=== PATIENT | female | born 1980 | race Caucasian/White ===

== ENCOUNTER 2016-09-23 16:13 | Emergency (ER) | payer SELFPAY ==
[~2016-09-23] VITALS: Ht 177.8 cm; Wt 93.1 kg
[~2016-09-23 16:13] MED LIST: DOXY25TA7 PO; IBUP-1428 PO
[2016-09-23 16:21] VITALS: TEMP 36.5; Ht 177.8 cm; Wt 93.1 kg
[2016-09-23] MEDS ORDERED: SODIUM CHLORIDE 0.9% 1000ML 1,000 ML IV STA (16:27)
[2016-09-23] MEDS ORDERED: KETOROLAC TROMETHAMINE 30 MG/ML VIAL IV STA (16:27)
[2016-09-23 16:47] LABS: BASO % 0.2 %; BASO ABS # 0.02 K/uL (0-0.2); COMPLETE YES; EOS % 2.2 %; HEMATOCRIT 42.5 % (37-47); IG% 0.3 %; LYMPH % 18.2 %; MEAN CORPUSCULAR HEMOGLOBIN 27.5 pg (25-34); MEAN CORPUSCULAR HGB CONC 32.7 g/dl (32-36); MEAN PLATELET VOLUME 11.1 fL (7.4-10.4); MONO % 6.6 %; NEUT % 72.5 %; PLATELET COUNT 190 K/uL (130-400); RED BLOOD COUNT 5.06 M/uL (4.2-5.4); WHITE BLOOD COUNT 8.79 K/uL (4.8-10.8)
[2016-09-23] MEDS ORDERED: MELA1TAB5 PO (16:48)
[2016-09-23] MEDS ORDERED: DIPH-437 PO (16:48)
[2016-09-23 16:56] LABS: URINE APPEARANCE CLEAR (CLEAR); URINE BILIRUBIN NEG (NEG); URINE COLOR YELLOW; URINE EPITHELIAL CELL AUTO >30 /lpf (0-5); URINE NITRITE NEG (NEG); URINE SPECIFIC GRAVITY 1.028 (1.000-1.030); UROBILINOGEN NEG (NEG); ZZUR CULT IF INDIC CLEAN CATCH NO
[2016-09-23 17:02] LABS: MANUAL MICROSCOPIC REQUIRED? NO; REVIEW REQ? YES
[2016-09-23 17:04] LABS: ALT/SGPT 26 U/L (12-78); AST/SGOT 19 U/L (15-37); BLOOD UREA NITROGEN 8 mg/dl (7-18); BUN/CREATININE RATIO 8.8 (10-20); CALCIUM 8.9 mg/dl (8.5-10.1); CARBON DIOXIDE 25 mmol/L (21-32); CHLORIDE 108 mmol/L (98-107); CREATININE 0.89 mg/dl (0.60-1.20); GLUCOSE 97 mg/dl (70-99); POTASSIUM 3.4 mmol/L (3.5-5.1); SODIUM 138 mmol/L (136-145)
--- NOTE | 2016-09-23 17:04 | EMERGENCY ROOM VISIT NOTE ---
History Report prepared by Pily: Izaiah Albright Under the Supervision of: Dr. Sawyer Cuevas D.O. First contact with patient: 16:24 Chief Complaint: RESPIRATORY PROBLEMS Stated Complaint: CHEST PAIN,DIZZY History of Present Illness The patient is a 35 year old female who presents to the Emergency Room with complaints of a constant chest tightness for the past 2 weeks. The patient additionally states that she is having shortness of breath, coughing with clear phlegm, chills, vomiting, burning with urination starting a week ago, runny nose , sore throat, ear pain more so on the right, and light headedness at work earlier today. She states that laying down makes the coughing worse. She states that her last menstrual period was two weeks ago, and she does not have a history of asthma. Additionally, she states that she has TMJ, though she does not have any acute jaw pain. The patient denies any history of hypertension, hyperlipidemia, diabetes, blood clots, CAD, cancer, recent trips, hemoptysis, swelling of legs, or recent surgeries. Pt denies headache, change in vision, fevers, diarrhea, and melena. Source of History: patient Onset: 2 weeks ago Position: chest Quality: other (tightness) Timing: constant Modifying Factors (Worsening): other (laying down) Associated Symptoms: + chills, + sorethroat, + cough, + SOB, + vomiting, + urinary symptoms Note: Associated symptoms: ear pain, light headedness Review of Systems See HPI for pertinent positives & negatives. A total of 10 systems reviewed and were otherwise negative. Past Medical & Surgical Medical Problems: (1) section (2) History of - tubal ligation Family History Diabetes mellitus FHx: cancer FHx: gallbladder disease FHx: heart disease Hypertension Social History Smoking Status: Never Smoker Alcohol Use: occasionally Marital Status: Housing Status: lives with family Current/Historical Medications Scheduled Acetaminophen/Diphenhydramine (Tylenol Pm), 1 TAB PO HS Azithromycin (Azithromycin), 250 MG PEG DAILY Benzonatate (Tessalon Perles), 100 MG PO TID Doxylamine Succinate (Sleep) (Unisom), 2 TAB PO HS Melatonin (Kp Melatonin), 1 TAB PO HS Scheduled PRN Ibuprofen (Motrin), 800 MG PO Q8H PRN for Pain or Fever Allergies Coded Allergies: Dairy (Verified Allergy, Intermediate, GI SYMPTOMS, 09/23/16) GI and congestion Uncoded Allergies: SEAFOOD (Allergy, Severe, ANAPHYLAXIS, 03/01/15) Physical Exam Vital Signs Date Time Temp Pulse Resp B/P (MAP) Pulse Ox O2 Delivery O2 Flow Rate FiO2 09/23/16 18:32 65 18 127/74 100 09/23/16 17:49 58 16 120/78 100 09/23/16 16:21 36.5 69 18 130/76 100 Room Air Physical Exam GENERAL: Sitting up in bed, minimal distress, non-toxic EYE EXAM: normal conjunctiva, PERRL and EOM's intact OROPHARYNX: no exudate, no erythema, lips, buccal mucosa, and tongue normal and mucous membranes are moist NECK: supple, no nuchal rigidity, no adenopathy, non-tender LUNGS: Clear to auscultation. Normal chest wall mechanics HEART: no murmurs, S1 normal and S2 normal ABDOMEN: abdomen soft, non-tender, normo-active bowel sounds, no masses, no rebound or guarding. BACK: Back is symmetrical on inspection and there is no deformity, no midline tenderness, no CVA tenderness. SKIN: no rashes and no bruising UPPER EXTREMITIES: upper extremities are grossly normal. LOWER EXTREMITIES: No pitting edema. NEURO EXAM: Normal sensorium, cranial nerves II-XII intact, normal speech, no weakness of arms, no weakness of legs. No drift. Finger to nose intact. Gross sensation intact. Medical Decision & Procedures ER Provider Diagnostic Interpretation: Radiology results as stated below per my review and the radiologist's interpretation: CHEST ONE VIEW PORTABLE CLINICAL HISTORY: Cough. COMPARISON STUDY: Chest radiograph April 02, 2012. FINDINGS: Lung volumes are normal. There is no pneumothorax or pleural effusion. Cardiomediastinal silhouette is normal. The appearance of the chest is unchanged. Pulmonary vascularity is normal. IMPRESSION: No acute cardiopulmonary findings. Electronically signed by: Samuel Rinaldi M.D. 09/23/2016 5:24 PM Dictated Date/Time: 09/23/2016 5:23 PM Laboratory Results 09/23/16 16:37 Red Blood Count 5.06, Mean Corpuscular Volume 84.0, Mean Corpuscular Hemoglobin 27.5, Mean Corpuscular Hemoglobin Concent 32.7, Mean Platelet Volume 11.1, Neutrophils (%) (Auto) 72.5, Lymphocytes (%) (Auto) 18.2, Monocytes (%) (Auto) 6.6, Eosinophils (%) (Auto) 2.2, Basophils (%) (Auto) 0.2, Neutrophils # (Auto) 6.37, Lymphocytes # (Auto) 1.60, Monocytes # (Auto) 0.58, Eosinophils # (Auto) 0.19, Basophils # (Auto) 0.02 09/23/16 16:37 Test 09/23/16 16:37 White Blood Count 8.79 K/uL (4.8-10.8) Red Blood Count 5.06 M/uL (4.2-5.4) Hemoglobin 13.9 g/dL (12.0-16.0) Hematocrit 42.5 % (37-47) Mean Corpuscular Volume 84.0 fL (80-100) Mean Corpuscular Hemoglobin 27.5 pg (25-34) Mean Corpuscular Hemoglobin Concent 32.7 g/dl (32-36) Platelet Count 190 K/uL (130-400) Mean Platelet Volume 11.1 fL (7.4-10.4) Neutrophils (%) (Auto) 72.5 % Lymphocytes (%) (Auto) 18.2 % Monocytes (%) (Auto) 6.6 % Eosinophils (%) (Auto) 2.2 % Basophils (%) (Auto) 0.2 % Neutrophils # (Auto) 6.37 K/uL (1.4-6.5) Lymphocytes # (Auto) 1.60 K/uL (1.2-3.4) Monocytes # (Auto) 0.58 K/uL (0.11-0.59) Eosinophils # (Auto) 0.19 K/uL (0-0.5) Basophils # (Auto) 0.02 K/uL (0-0.2) RDW Standard Deviation 40.2 fL (36.4-46.3) RDW Coefficient of Variation 13.3 % (11.5-14.5) Immature Granulocyte % (Auto) 0.3 % Immature Granulocyte # (Auto) 0.03 K/uL (0.00-0.02) D-Dimer 200 ug/L FEU (0-500) Urine Color YELLOW Urine Appearance CLEAR (CLEAR) Urine pH 5.0 (4.5-7.5) Urine Specific [place] 1.028 (1.000-1.030) Urine Protein NEG (NEG) Urine Glucose (UA) NEG (NEG) Urine Ketones NEG (NEG) Urine Occult Blood NEG (NEG) Urine Nitrite NEG (NEG) Urine Bilirubin NEG (NEG) Urine Urobilinogen NEG (NEG) Urine Leukocyte Esterase SMALL (NEG) Urine WBC (Auto) 5-10 /hpf (0-5) Urine RBC (Auto) 0-4 /hpf (0-4) Urine Hyaline Casts (Auto) 1-5 /lpf (0-5) Urine Epithelial Cells (Auto) >30 /lpf (0-5) Urine Bacteria (Auto) NEG (NEG) Urine Test NEG (NEG) Anion Gap 5.0 mmol/L (3-11) Est Creatinine Clear Calc Drug Dose 110.1 ml/min Estimated GFR () 98.0 Estimated GFR (Non- 84.6 BUN/Creatinine Ratio 8.8 (10-20) Calcium Level 8.9 mg/dl (8.5-10.1) Total Bilirubin 0.4 mg/dl (0.2-1) Direct Bilirubin < 0.1 mg/dl (0-0.2) Aspartate Amino Transf (AST/SGOT) 19 U/L (15-37) Alanine Aminotransferase (ALT/SGPT) 26 U/L (12-78) Alkaline Phosphatase 78 U/L (45-117) Troponin I < 0.015 ng/ml (0-0.045) Total Protein 7.5 gm/dl (6.4-8.2) Albumin 3.7 gm/dl (3.4-5.0) Lipase 95 U/L (73-393) Laboratory results per my review. Medications Administered Medications (Trade) Dose Ordered Sig/Eunice Route Start Time Stop Time Status Last Admin Dose Admin Sodium Chloride 1,000 ml @ 999 mls/hr Q1H1M STAT IV 09/23/16 16:27 09/23/16 17:27 DC 09/23/16 16:45 999 MLS/HR Ketorolac Tromethamine (Toradol Inj) 30 mg NOW STAT IV 09/23/16 16:27 09/23/16 16:29 DC 09/23/16 16:46 30 MG Azithromycin (Zithromax Tab) 500 mg NOW STAT PO 09/23/16 17:33 09/23/16 17:34 DC 09/23/16 17:47 500 MG Albuterol Sulfate (Ventolin 0.083% 2.5MG/3ML Neb) 2.5 mg NOW STAT INH 09/23/16 17:33 09/23/16 17:34 DC 09/23/16 17:47 2.5 MG ECG Indication: chest pain, SOB/dyspnea Rate (beats per minute): 66 Rhythm: sinus rhythm Findings: no ectopy, other (normal intervals) ED Course ED COURSE: Vital signs were reviewed and showed bradycardia The patients medical record was reviewed The above diagnostic studies were performed and reviewed. ED treatments and interventions as stated above. 1624: The patient was evaluated in room C7. A complete history and physical examination was performed. 1627: Toradol Inj 30mg IV, Sodium Chloride 1000 ml @ 999 mls/hr IV 1733: Ventolin 0.083% 2.5mg/3ml Neb 2.5mg INH, Azithromycin 500mg PO 1743: I reevaluated the patient, and she states that she is still feeling the same. 1818: Upon reevaluation, the patient is feeling a little bit better. I discussed my findings with the patient and she understands and agrees with the treatment plan. Based on the patients age, coexisting illnesses, exam and lab findings the decision to treat as an outpatient was made. The patient remained stable while under my care. The patient appeared well at the time of discharge. Medical Decision Differential diagnoses includes but is not limited to acute coronary syndrome, myocardial infarction, pericarditis, pulmonary embolus, aortic dissection, pneumonia, pneumothorax, musculoskeletal, shingles, esophageal. Patient is a 35-year-old female that presents the ER for chest tightness which is been present for the past 2 weeks unchanged associated with a productive cough for the same time., Runny nose, sore throat and ear pain for 1 week. She also complains of mild burning with urination. Patient has no fevers. CBC along with BMP was unremarkable for mild hypokalemia. LFTs along with bilirubin , troponin and lipase was negative. Chest pain present for greater than 8 hours with a negative troponin and a nonischemic EKG. Chest x-ray shows no infiltrate. D-dimer was negative. UA was contaminated with multiple epithelial cells. Will not treat at this time. was negative. Patient was given a dose of Zithromax and a neb treatment. She did have some improvement of her symptoms. She given a bolus normal saline. Patient was discharged to follow-up with PCP for a bronchitis. Discussed with Pt concerning signs and symptoms to watch out for. Pt was instructed to follow up with their PCP and discussed with the patient their option to return to the ED at anytime for persistent or worsening symptoms. The appropriate anticipatory guidance and out-patient management, including indications for return to the emergency department, were explained at length to the patient and understood. Medication Reconcilliation Current Medication List: was personally reviewed by me Blood Pressure Screening Patient's blood pressure: Normal blood pressure Impression Primary Impression: Bronchitis Additional Impression: URI (upper respiratory infection) Scribe Attestation The scribe's documentation has been prepared under my direction and personally reviewed by me in its entirety. I confirm that the note above accurately reflects all work, treatment, procedures, and medical decision making performed by me. Departure Information Dispostion Home / Self-Care Prescriptions Azithromycin (Azithromycin) 250 Mg Tab 250 MG PEG DAILY for 4 Days Prov: Sawyer Cuevas, DO 09/23/16 Benzonatate (TESSALON PERLES) 100 Mg Cap 100 MG PO TID, #20 CAP Prov: Sawyer Cuevas, DO 09/23/16 Referrals Lee Peter (PCP) Forms HOME CARE DOCUMENTATION FORM, IMPORTANT VISIT INFORMATION, WORK / SCHOOL INSTRUCTIONS Patient Instructions Bronchitis Acute, My [facility] Additional Instructions Please follow up with your primary care doctor or if you are a student, [facility] with in the next 24 hours. Any worsening of your symptoms, please return to the ED immediately. This includes any fevers greater than 100.4, worsening pain, chest pain, shortness breath, persistent nausea, vomiting, unable to eat or drink, or any other concerning signs or symptoms from your standpoint. Problem Qualifiers Additional Impression: URI (upper respiratory infection) URI type: unspecified URI Qualified Codes: J06.9 - Acute upper respiratory infection, unspecified
[2016-09-23 17:10] LABS: ALKALINE PHOSPHATASE 78 U/L (45-117)
--- NOTE | 2016-09-23 17:25 | DIAGNOSTIC IMAGING REPORT ---
CHEST ONE VIEW PORTABLE CLINICAL HISTORY: Cough. COMPARISON STUDY: Chest radiograph April 02, 2012. FINDINGS: Lung volumes are normal. There is no pneumothorax or pleural effusion. Cardiomediastinal silhouette is normal. The appearance of the chest is unchanged. Pulmonary vascularity is normal. IMPRESSION: No acute cardiopulmonary findings. Electronically signed by: Samuel Rinaldi M.D. 09/23/2016 5:24 PM Dictated Date/Time: 09/23/2016 5:23 PM
[2016-09-23] MEDS ORDERED: AZITHROMYCIN 250 MG TAB PO STA (17:33)
[2016-09-23] MEDS ORDERED: ALBUTEROL 0.083% NEBU SOLN 3 ML VIAL INH STA (17:33)
[2016-09-23] MEDS ORDERED: BENZ100C18 PO (18:18)
[2016-09-23] MEDS ORDERED: ZTHM250 PEG (18:18)
[2016-09-23 18:32] VITALS: BP 127/74; PULSE 65; O2SAT 100
== END 2016-09-23 18:32 | disposition home or self-care (01) ==
LOC: C.EDB 16:14 → C.EDC 18:32
DX: J06.9 Acute upper respiratory infection, unspecified (principal); J40 Bronchitis, not specified as acute or chronic; E87.6 Hypokalemia; Z79.899 Other long term (current) drug therapy; Z91.011 Allergy to milk products; Z83.3 Family history of diabetes mellitus; Z80.9 Family history of malignant neoplasm, unspecified; Z83.79 Family history of other diseases of the digestive system; Z82.49 Family history of ischemic heart disease and other diseases of the circulatory system